=== PATIENT | female | born 1945 | race Caucasian/White ===

== ENCOUNTER 2023-08-07 16:50 | Emergency (ER) | payer MEDICARE | END 2023-08-07 17:30 | disposition home or self-care (01) | LOC: NAV ERS 16:50 | DX: M54.32 Sciatica, left side (principal); I10 Essential (primary) hypertension; E78.00 Pure hypercholesterolemia, unspecified; Z86.718 Personal history of other venous thrombosis and embolism; Z86.73 Personal history of transient ischemic attack (TIA), and cerebral infarction without residual deficits; Z79.01 Long term (current) use of anticoagulants; Z79.899 Other long term (current) drug therapy | CPT/HCPCS: 99283 ==

== ENCOUNTER 2024-01-03 10:07 | Outpatient (CLI) | payer MEDICARE | END 2024-01-03 10:08 | disposition home or self-care (01) | LOC: NAV RAD 10:07 | PROVIDERS: ATTEND Family Medicine | DX: M47.26 Other spondylosis with radiculopathy, lumbar region (principal); M54.41 Lumbago with sciatica, right side; M54.42 Lumbago with sciatica, left side; R29.898 Other symptoms and signs involving the musculoskeletal system; M16.11 Unilateral primary osteoarthritis, right hip | CPT/HCPCS: 72100 ==